=== PATIENT | male | born 1985 | race Caucasian/White ===

== ENCOUNTER 2019-12-03 20:20 | Emergency (ER) | payer MEDICAID ==
[~2019-12-03 20:20] MED LIST: HYDR-4383 PO; ONDA8TAB9 PO; PANT-47 PO
== END 2019-12-04 00:50 | disposition left against medical advice (07) ==
LOC: ER 20:21
DX: M79.643 Pain in unspecified hand (principal); Z53.21 Procedure and treatment not carried out due to patient leaving prior to being seen by health care provider

== ENCOUNTER 2022-07-12 05:05 | Emergency (ER) | payer MEDICAID ==
[~2022-07-12] VITALS: Ht 170.2 cm; Wt 72.7 kg
[2022-07-12 05:11] VITALS: BP 125/80
[2022-07-12] MEDS ORDERED: LIDOcaine Viscous 15ml cup MM PRN (07:05)
[2022-07-12] MEDS ORDERED: ketorolac trometh inj. 60 MG/2 ML VIAL IM ONE (07:05)
[2022-07-12] MEDS ORDERED: PENI500T2 PO (07:14)
== END 2022-07-12 07:47 | disposition home or self-care (01) ==
LOC: ER 05:06
DX: K08.89 Other specified disorders of teeth and supporting structures (principal); Z79.2 Long term (current) use of antibiotics; Z79.899 Other long term (current) drug therapy
CPT/HCPCS: 96372; 99283; J1885

== ENCOUNTER 2023-04-19 22:17 | Emergency (ER) | payer MEDICAID | END 2023-04-19 22:30 | disposition left against medical advice (07) | LOC: ER 22:17 | DX: R20.2 Paresthesia of skin (principal); Z53.21 Procedure and treatment not carried out due to patient leaving prior to being seen by health care provider ==